=== PATIENT | male | born 1960 | race Caucasian/White ===

== ENCOUNTER → 2017-02-05 | Outpatient (CLI) | payer OTHER ==
[~2017-02-05] MED LIST: ALIG4CAP PO; COUM2.5T17 PO; EPI-PEN IM; FISH100049 PO; FLEXERIL PO; GABA300C2 PO; IBUP800T OR; MAGN250T9 PO; MIRA33504 PO; MULTIVIT PO; MULTTAB50 PO; PERC5TAB12 PO; PERCOCET PO; REST0.05 OU; TYLENOL #3 OR; VERA240T OR; VITA-112 PO; VITA100T5 OR; VITAMIN B COMPLE1 OR
[2017-02-05 12:37] LABS: MEAN CORPUSCULAR HEMOGLOBIN 29.6 pg (27.0-33.0); MEAN CORPUSCULAR HGB CONC 32.6 g/dl (32.0-36.5); MEAN CORPUSCULAR VOLUME 90.9 fl (80.0-96.0); RED CELL DISTRIBUTION WIDTH 13.8 % (11.5-14.5); WHITE BLOOD COUNT 13.9 10^3/uL (4.0-10.0)
[2017-02-05 12:45] LABS: INR 0.81
--- NOTE | 2017-02-05 12:47 | REP ---
PA and lateral chest: There are no comparisons. The lung butler are clear. The cardiac size is normal The [place], mediastinum, and bony thorax are unremarkable. The cervical spine stabilization plate is incidentally noted. Impression: Negative PA and lateral chest. Signed by Cory Nair MD 02/05/2017 12:39 P
[2017-02-05 12:55] LABS: ALBUMIN 3.9 GM/DL (3.2-5.2); ALBUMIN/GLOBULIN RATIO 1.03 (1.00-1.93); ALKALINE PHOSPHATASE 98 U/L (45-117); ALT/SGPT 35 U/L (12-78); ANION GAP 8 MEQ/L (8-16); AST/SGOT 20 U/L (15-37); BILIRUBIN,TOTAL 0.4 MG/DL (0.2-1.0); BLOOD UREA NITROGEN 17 MG/DL (7-18); CALCIUM LEVEL 9.8 MG/DL (8.5-10.1); CARBON DIOXIDE LEVEL 27 MEQ/L (21-32); CHLORIDE LEVEL 106 MEQ/L (98-107); CREATININE FOR GFR 0.69 MG/DL (0.70-1.30); GLOMERULAR FILTRATION RATE > 60.0 (>56); GLUCOSE, FASTING 90 MG/DL (70-105); SODIUM LEVEL 141 MEQ/L (136-145); TOTAL PROTEIN 7.7 GM/DL (6.4-8.2)
--- NOTE | 2017-02-05 17:41 | ECGEPIP ---
Stationary ECG Study [facility] Test Date: 2017-02-05 Pat Name: CHESTER GREEN Department: Room: - Gender: M Human Resources Benefits Administrator: ADONIS : 1960 Requested By: Richard Slaughter Order Number: [id number] Reading MD: Dulce Jordan Measurements Intervals [place] Rate: 57 P: 41 ND: 139 QRS: 15 QRSD: 117 T: 3 QT: 403 QTc: 393 Interpretive Statements SINUS BRADYCARDIA LEFT VENTRICULAR HYPERTROPHY AND ST-T ABNORMALITIES SIMILAR 08/09/13, LEFT VENTRICULAR HYPERTHROPHY IS NEW Electronically Signed On 02-05-2017 17:40:46 EDT by Dulce Jordan
== END ==
LOC: M ADMPAT 10:35
PROVIDERS: ATTEND Orthopaedic Surgery
DX: M17.11 Unilateral primary osteoarthritis, right knee (principal)

== ENCOUNTER 2018-05-30 07:02 | Day surgery (SDC) | payer OTHER ==
[~2018-05-30] VITALS: Ht 167.6 cm; Wt 84.8 kg
[~2018-05-30 07:02] MED LIST changes: +CELE1CAP4 PO; +LR 1,000 ML IV ONE; +TYLETAB14 PO; +VERA240C3 PO
[2018-05-30] MEDS ORDERED: dexameTHASONE 10 MG/1 ML VIAL PRES.FREE (J1100) ONE (07:03)
[2018-05-30] MEDS ORDERED: LIDOCAINE 1% MDV 20ML VIAL ONE (07:03)
[2018-05-30] MEDS ORDERED: ROPIvacaine 0.5% 30 ML INJECTION (J2795 PER 1MG) ONE (07:03)
[2018-05-30] MEDS ORDERED: ROCURONIUM BROMIDE 50 MG/5 ML VIAL As Ordered ONE (07:59)
[2018-05-30] MEDS ORDERED: LIDOCAINE 2% INJ 100 MG/5 ML SDV (FOR ANES.) As Ordered ONE (07:59)
[2018-05-30] MEDS ORDERED: PROPOFOL 200 MG/20 ML VIAL As Ordered ONE ×2 (07:59→09:37)
[2018-05-30] MEDS ORDERED: fentaNYL 250 MCG/5 ML INJECTION (J3010) As Ordered ONE (08:00)
[2018-05-30] MEDS ORDERED: fentaNYL 100 MCG/2 ML INJECTION (J3010) As Ordered ONE (08:00)
[2018-05-30] MEDS ORDERED: MIDAZOLAM INJ 2 MG/2 ML VIAL (J2250) As Ordered ONE (08:00)
[2018-05-30] MEDS ORDERED: fentaNYL 100 MCG/2 ML INJECTION (J3010) IV ONE (09:00)
[2018-05-30] MEDS ORDERED: MIDAZOLAM INJ 2 MG/2 ML VIAL (J2250) IV ONE (09:00)
[2018-05-30] MEDS ORDERED: LIDOCAINE 1% MDV 20ML VIAL As Ordered ONE (09:05)
[2018-05-30] MEDS ORDERED: EPINEPHrine 1MG/ML INJ 30ML MD-VIAL As Ordered ONE (09:05)
[2018-05-30] MEDS ORDERED: dexameTHASONE 4 MG/ML 1ML VIAL (J1100) As Ordered ONE (09:37)
[2018-05-30] MEDS ORDERED: METOCLOPRAMIDE INJ 10MG/2ML VIAL (J2765) As Ordered ONE (10:02)
[2018-05-30] MEDS ORDERED: GLYCOPYRROLATE INJ 0.2 MG/ML 2 ML VIAL As Ordered ONE (10:02)
[2018-05-30] MEDS ORDERED: NEOSTIGMINE 10 MG/10 ML VIAL (J2710) As Ordered ONE ×2 (10:02→10:03)
[2018-05-30] MEDS ORDERED: ONDANSETRON 4MG/2ML VIAL (J2405) As Ordered ONE (10:02)
[2018-05-30] MEDS ORDERED: ePHEDrine SULFATE 25 MG/5 ML(5MG/ML) SYRINGE As Ordered ONE (10:18)
[2018-05-30] MEDS ORDERED: PHENYLephrine HCL 500 MCG/5 ML (100MCG/ML) SYRINGE (J2370) As Ordered ONE (10:27)
[2018-05-30] MEDS ORDERED: LR 1,000 ML IV SCH ×2 (12:00)
[2018-05-30] MEDS ORDERED: HYDROMORPHONE HCL 0.5 MG/ 0.5 ML SYRINGE (J1170 PER 1) IV PRN (12:00)
[2018-05-30] MEDS ORDERED: ONDANSETRON 4MG/2ML VIAL (J2405) IV PRN (12:00)
[2018-05-30] MEDS ORDERED: fentaNYL 100 MCG/2 ML INJECTION (J3010) IV PRN (12:00)
[2018-05-30] MEDS ORDERED: PERCOCET 5MG/325MG TAB PO PRN (12:00)
[2018-05-30 12:30] VITALS: BP 142/78
--- NOTE | 2018-05-30 16:17 | RO ---
DATE OF PROCEDURE: 05/30/2018 PREOPERATIVE DIAGNOSES: 1. Left shoulder high-grade partial thickness rotator cuff tear. 2. Left shoulder long head biceps tendon rupture repair. 3. Left shoulder labral tear. 4. Left shoulder impingement. POSTOPERATIVE DIAGNOSIS: 1. Left shoulder high-grade partial thickness rotator cuff tear. 2. Left shoulder long head biceps tendon rupture repair. 3. Left shoulder labral tear. 4. Left shoulder impingement. PROCEDURES: 1. Left shoulder arthroscopic rotator cuff repair. 2. Left shoulder arthroscopic extensive debridement including labral debridement, chondroplasty and subacromial decompression. SURGEON: Dr. Clark Smith ORACLE ANALYST: OTILIA Sutton ANESTHESIA: General with preoperative nerve block. IV FLUIDS: Lactated Ringer's. ESTIMATED BLOOD LOSS: 5 mL IMPLANTS: Arthrex proximal biceps button times one and Arthrex 4.75 mm Peak SwiveLock anchor times four ([place]) closure nylon. PROCEDURE: Patient identified in preoperative holding area. The left shoulder marked by myself. The patient's Yosi deformity had gotten worse consistent with further retraction of the long head of biceps. The patient agreed that we would not do an exploration of the biceps or tenodesis. He had interscalene nerve block. Brought to the operating room, placed supine on a well-padded OR table with a beanbag. General anesthesia was induced. He received appropriate IV antibiotics within 1 hour of incision. Exam under anesthesia revealed 180 degrees of forward flexion 90 of external rotation with arm at his side. He grade 1 plus anterior load and shift grade 1 posterior. He is then placed in the right side down lateral decubitus position with an axillary roll. All bony prominences well padded. Bilateral Venodyne boots for DVT prophylaxis. Beanbag was deflated. He was secured to the OR table. The left arm was placed into the Arthrex star sleeve lateral decubitus traction device with 10 pounds of traction. The left shoulder was then prepped and draped in normal sterile fashion with Chloraprep. Time-out performed per hospital protocol. El Hartmann was present for the entire procedure and participated in all essential portions procedure. This included prepping and draping the position, holding the arthroscope, using the mallet and AWL and placing anchors, retrieving suture and wound closure. The left shoulder was insufflated 30 mL of lactated Ringer's. Standard posterior viewing portal made 11-blade and 30 degrees arthroscope introduced into the joint. Diagnostic arthroscopy carried out revealing a high-grade partial articular tear of the supraspinatus extending into the infraspinatus. The subscapularis appeared pristine. The long head of biceps tendon had torn off the superior labrum and fully withdrawn out of the joint. The scope was placed out the bicipital groove. No tendon was visible. There is extensive tearing of the anterior and superior labrum. There was minimal lift off of the subscap doing the posterior lever push maneuver. An anterior working portal was established in the rotator interval. Purple Arthrex cannula placed. Shaver was used to debride the anterior superior labrum. I also debrided the partial articular rotator cuff tear. Spinal needle was placed through the subacromial space through the tear into the joint to esvin the posterior aspect of the tear. Again probing the upper border of the subscap of the switching stick no tearing. No indication for repair. A chondroplasty of the humeral head adjacent to the rotator cuff tear of the shaver. Otherwise the glenoid and humeral head were in great condition. Arthroscope placed into the subacromial space where there was extensive bursitis and a lateral working portal was established. I then proceeded with a bursectomy using the shaver and cautery. The switching stick was used to palpate the supraspinatus and I was able to palpate that high-grade articular sided tear. Cautery was then used to turn this into full thickness tear releasing the remaining bursal fibers. The highest grade tearing was that the junction of the infra and supraspinatus and then further anteriorly the partial articular tear was only about 50%. I did place the scope intermittently into the joint and then back into the bursal surface to ensure I was not enlarging the anterior to superior aspect of the tear. Shaver was used to remove all soft tissue off the greater tuberosity to ensure bone the tendon healing. This was amendable to a double row repair. Punch was used to create a socket in the anterior aspect of the greater tuberosity just off the articular surface. The first SwiveLock anchor preloaded tape was placed with excellent fixation. Sutures were cut so I could pass the tape sutures individually. They are passed in a horizontal fashion from anterior to posterior. The second preloaded SwiveLock was placed further posterior in the greater tuberosity also just off the articular surface. The sutures also individually passed in a horizontal mattress fashion. Anterior sutures retrieved out the lateral portal loaded through 475 SwiveLock anchor, the smaller punch was used to ensure better fixation and then the anchor was docked, sutures tensioned anchor and anchor malleted and then inserted by hand with excellent fixation. This was repeated for the posterior tapes. Posterior lateral anchor also with excellent fixation. This created a nice box and X configuration. There are no dog ears. Shoulder was gently internally an externally rotated, gently abducted and adducted and there is no lift off. The shoulder was then irrigated and drained. Portals were closed with nylon suture. Bulky sterile dressing applied. He was then placed into the ARC2 sling. He was extubated, transferred to PACU in stable condition.
== END 2018-05-30 13:16 | disposition home or self-care (01) ==
LOC: M SDC 07:02
PROVIDERS: ATTEND Orthopaedic Surgery
DX: M75.112 Incomplete rotator cuff tear or rupture of left shoulder, not specified as traumatic (principal); S43.112A Subluxation of left acromioclavicular joint, initial encounter; S43.492A Other sprain of left shoulder joint, initial encounter; M75.42 Impingement syndrome of left shoulder; I10 Essential (primary) hypertension; R94.31 Abnormal electrocardiogram [ECG] [EKG]; K57.30 Diverticulosis of large intestine without perforation or abscess without bleeding; M54.2 Cervicalgia; M12.9 Arthropathy, unspecified; E78.00 Pure hypercholesterolemia, unspecified; N40.1 Benign prostatic hyperplasia with lower urinary tract symptoms; G43.909 Migraine, unspecified, not intractable, without status migrainosus; F41.9 Anxiety disorder, unspecified; R06.83 Snoring; L98.9 Disorder of the skin and subcutaneous tissue, unspecified; T88.59XD Other complications of anesthesia, subsequent encounter; Z91.030 Bee allergy status; Z79.899 Other long term (current) drug therapy; Z72.0 Tobacco use; Z98.1 Arthrodesis status; X58.XXXA Exposure to other specified factors, initial encounter; Y93.89 Activity, other specified; Y92.89 Other specified places as the place of occurrence of the external cause; Y99.8 Other external cause status
CPT/HCPCS: 29826; 29827; 64415; C1713; J0690; J1100; J2250; J2370; J2405; J2710; J2765; J2795; J3010

== ENCOUNTER → 2018-11-23 | Outpatient (CLI) | payer OTHER ==
[~2018-11-23] MED LIST changes: -LR 1,000 ML IV ONE
--- NOTE | 2018-11-24 03:45 | REP ---
Clinical: MRI clearance. Technique: AP and lateral views of the skull. Findings: Evidence for prior anterior cervical fixation and metallic dental amalgam. No further metallic foreign body material is appreciated. Calvarium appears intact. Impression: No significant metallic foreign body. As above. Electronically Signed by Marco Alberts MD 11/24/2018 03:37 A
== END ==
LOC: M RAD 09:58
PROVIDERS: ATTEND Orthopaedic Surgery
DX: M47.22 Other spondylosis with radiculopathy, cervical region (principal)

== ENCOUNTER → 2018-11-25 | Outpatient (CLI) | payer OTHER ==
--- NOTE | 2018-11-25 15:07 | REP ---
MRI LEFT SCAPULA WITHOUT CONTRAST: Multiple sequences obtained in the axial, coronal, and sagittal planes without the use of intravenous contrast. Patient could not tolerate further imaging with contrast due to pain. Reportedly, there is a palpable abnormality in the region of the left scapula, and the area is marked on the skin. No definite underlying cystic or solid mass is seen. There is no abnormal signal in the soft tissues. No edema or fluid collection is seen. The visualized osseous structures demonstrate normal marrow signal. IMPRESSION: Grossly negative MRI left posterior chest wall and scapula. No gross mass, edema, or fluid collection. Since the clinical abnormality is palpable and there is a question of a soft tissue mass, I would recommend the patient return when he is able for postcontrast imaging of the area. Electronically Signed by Cory Guan MD 11/29/2018 05:35 P
--- NOTE | 2018-11-25 16:03 | REPVR ---
EXAM: MR Cervical Spine Without Contrast EXAM DATE/TIME: 11/25/2018 1:48 PM CLINICAL HISTORY: 58 years old, male; Neck pain and radicular pain (radiculopathy); Cervicothoracic region. TECHNIQUE: Imaging protocol: Multiplanar magnetic resonance images of the cervical spine without contrast. COMPARISON: CR Spine, Cervical 08/29/2013 8:54 AM FINDINGS: Vertebrae: The patient has had prior anterior cervical fusion from C4-7. Surgical hardware causes moderate magnetic susceptibility artifact which limits evaluation of the surrounding anatomy. Spinal cord: Normal signal. No cord compression. There is a moderate disc bulge with a small superimposed central disc herniation. There is effacement of the ventral subarachnoid space and indentation of the ventral cervical cord. There is mild/moderate bilateral neuroforaminal narrowing. Soft tissues: Unremarkable. IMPRESSION: 1. The patient has had prior anterior cervical fusion from C4-7. Surgical hardware causes moderate magnetic susceptibility artifact which limits evaluation of the surrounding anatomy. Please correlate with surgical history. 2. Disc bulging with small central disc herniation at C3/4. Please see details above. Electronically signed by: Nick Porter On 11/25/2018 16:02:50 PM
== END ==
LOC: M PLARAD 09:51
PROVIDERS: ATTEND Orthopaedic Surgery Sports Medicine
DX: M50.322 Other cervical disc degeneration at C5-C6 level (principal); M50.323 Other cervical disc degeneration at C6-C7 level; Z98.1 Arthrodesis status

== ENCOUNTER → 2019-11-06 | Outpatient (CLI) | payer BC ==
[~2019-11-06] MED LIST changes: +CANABIS PO; +MULTCAP PO; +PROHANCE 279.3MG/ML 15ML VIAL As Ordered ONE; +TIZA4TAB4 PO; +VITAD1000T PO
--- NOTE | 2019-11-07 10:24 | REP ---
MRI CERVICAL SPINE: INDICATION: Radiculopathy. TECHNIQUE: Multiplanar short and long TR sequences of the cervical spine were performed including IV gadolinium imaging. COMPARISON: 11/25/2018 FINDINGS: The patient is status post C4-C7 ACDF. The adjacent anatomy is suboptimally evaluated secondary to susceptibility artifact associated with the hardware. No areas of worrisome marrow signal are present. No areas of pathologic gadolinium enhancement are detected. There is no evidence of abnormal cord signal. C2-C3: There is no focal disc herniation or significant spinal canal/neural foraminal narrowing. C3-C4: There is a tiny posterior central/right paracentral disc protrusion and right greater than left facet arthropathy. There is mild flattening of the ventral cord. There is moderate to severe right greater than left neural foraminal narrowing. C4-C5, C5-C6 and C6-C7: Postoperative sequelae are present without significant spinal canal or neural foraminal narrowing. C7-T1: There is no focal disc herniation or significant spinal canal/neural foraminal narrowing. IMPRESSION: Degenerative and postoperative sequelae of the cervical spine as described without significant spinal canal narrowing/cord compression. No abnormal cord signal. Unreviewed
== END ==
LOC: M RAD 14:47
PROVIDERS: ATTEND Physician Assistant
DX: M47.22 Other spondylosis with radiculopathy, cervical region (principal); M50.21 Other cervical disc displacement, high cervical region
CPT/HCPCS: 72156; A9576

== ENCOUNTER → 2019-11-12 | Outpatient (CLI) | payer BC ==
[~2019-11-12] MED LIST changes: +D31000TA2 PO; -PROHANCE 279.3MG/ML 15ML VIAL As Ordered ONE; -VITAD1000T PO
== END ==
LOC: M LABSMTC 09:38
PROVIDERS: ATTEND Anesthesiology
DX: Z01.818 Encounter for other preprocedural examination (principal); Z20.828 Contact with and (suspected) exposure to other viral communicable diseases; Z11.59 Encounter for screening for other viral diseases
CPT/HCPCS: C9803; U0003

== ENCOUNTER 2019-11-17 13:04 | Day surgery (SDC) | payer BC ==
[~2019-11-17] VITALS: Ht 167.6 cm; Wt 76.2 kg
[~2019-11-17 13:04] MED LIST changes: +NS 1,000 ML IV ONE
--- NOTE | 2019-11-17 14:15 | ROOR ---
Patient Name: Vineet Cuevas Procedure Date: 11/17/2019 1:47 PM Date of : 1960 Age: 59 Room: [facility] Gender: Male Note Status: Finalized Procedure: Colonoscopy Indications: Abnormal CT of the GI tract, Follow-up of diverticulitis Providers: Salvador CABRERA MD Referring MD: Mariana Nick DO Requesting Provider: Medicines: Monitored Anesthesia Care Complications: No immediate complications. Procedure: Pre-Anesthesia Assessment: - The heart rate, respiratory rate, oxygen saturations, blood pressure, adequacy of pulmonary ventilation, and response to care were monitored throughout the procedure. The Colonoscope was introduced through the anus and advanced to the terminal ileum, with identification of the appendiceal orifice and IC valve. The colonoscopy was performed without difficulty. The patient tolerated the procedure well. The quality of the bowel preparation was good. Findings: Hemorrhoids were found on perianal exam. A diminutive polyp was found in the sigmoid colon. The polyp was sessile. The polyp was removed with a cold snare. Resection and retrieval were complete. Multiple small-mouthed diverticula were found in the sigmoid colon. There was evidence of diverticular spasm. Internal hemorrhoids were found during retroflexion. The hemorrhoids were medium-sized. The exam was otherwise without abnormality on direct and retroflexion views. Impression: - Hemorrhoids found on perianal exam. - Moderate internal hemorrhoids. - One diminutive polyp in the sigmoid colon, removed with a cold snare. Resected and retrieved. - Moderate diverticulosis in the sigmoid colon. There was evidence of diverticular spasm. - The colon examination was otherwise normal on direct and retroflexion views. Recommendation: - Telephone endoscopist for pathology results in 2 weeks. - If the pathology report reveals adenomatous tissue, then repeat the colonoscopy for surveillance in 5 years. - Await pathology results. Salvador Cabrera MD Salvador CABRERA MD 11/17/2019 2:15:03 PM Electronically signed by Salvador CABRERA MD Number of Addenda: 0 Note Initiated On: 11/17/2019 1:47 PM Estimated Blood Loss: Estimated blood loss: none.
[2019-11-17] MEDS ORDERED: propofoL 200 MG/20 ML VIAL As Ordered ONE (14:24)
[2019-11-17] MEDS ORDERED: LIDOCAINE 2% 100MG/5ML SDV (FOR ANES.) As Ordered ONE (14:24)
[2019-11-17 14:43] VITALS: BP 160/74
== END 2019-11-17 14:46 | disposition home or self-care (01) ==
LOC: M OPP 13:04
PROVIDERS: ATTEND Internal Medicine Gastroenterology
DX: K57.32 Diverticulitis of large intestine without perforation or abscess without bleeding (principal); K57.30 Diverticulosis of large intestine without perforation or abscess without bleeding; K64.8 Other hemorrhoids; F17.210 Nicotine dependence, cigarettes, uncomplicated; D12.5 Benign neoplasm of sigmoid colon; Z79.899 Other long term (current) drug therapy; Z91.030 Bee allergy status

== ENCOUNTER → 2020-10-10 | Outpatient (CLI) | payer BC ==
[~2020-10-10] MED LIST changes: -NS 1,000 ML IV ONE
--- NOTE | 2020-10-11 05:15 | REP ---
INDICATION: LLQ PAIN COMPARISON: None. TECHNIQUE: Grayscale and color B-mode ultrasound examination using linear high-frequency transducer. FINDINGS: Directed ultrasound examination of the left groin demonstrates small fat containing reducible inguinal hernia with slight enlargement on Valsalva and associated peritoneal defect of 27 mm. IMPRESSION: Small reducible fat containing inguinal hernia. <Electronically signed by Marco Alberts > 10/11/20 0511
== END ==
LOC: M RAD 12:06
PROVIDERS: ATTEND Surgery
DX: R10.32 Left lower quadrant pain (principal); K40.90 Unilateral inguinal hernia, without obstruction or gangrene, not specified as recurrent

== ENCOUNTER → 2020-12-02 | Outpatient (CLI) | payer BC ==
[~2020-12-02] MED LIST changes: +ACET1TAB16 PO; +DOCU100T8 PO; +MIRA3350 PO; +NO ITAB PO; +OMEG10002 PO; +PROB250C PO; +VITA100091 PO
== END ==
LOC: M LABSMTC 09:58
PROVIDERS: ATTEND Anesthesiology
DX: Z01.812 Encounter for preprocedural laboratory examination (principal); Z20.822 Contact with and (suspected) exposure to COVID-19

== ENCOUNTER 2020-12-06 09:10 | Day surgery (SDC) | payer BC ==
[~2020-12-06] VITALS: Ht 167.6 cm; Wt 78.9 kg
[~2020-12-06 09:10] MED LIST changes: +LR 1,000 ML IV ONE; +TIZA10TA PO; -TIZA4TAB4 PO; +ceFAZolin SOD 2 GM in IV 1 EA IV ONE
[2020-12-06] MEDS ORDERED: LIDOCAINE 2% 100MG/5ML SDV (FOR ANES.) ONE (09:58)
[2020-12-06] MEDS ORDERED: propofoL 200 MG/20 ML VIAL ONE (09:58)
[2020-12-06] MEDS ORDERED: fentaNYL 100 MCG/2 ML INJECTION ONE ×2 (09:58→11:27)
[2020-12-06] MEDS ORDERED: dexameTHASONE 4 MG/ML 1ML VIAL (J1100 PER 1MG) ONE (09:58)
[2020-12-06] MEDS ORDERED: MIDAZOLAM INJ 2MG/2ML VIAL (J2250 PER 1MG) ONE (09:58)
[2020-12-06] MEDS ORDERED: ROCURONIUM BROMIDE 50 MG/5 ML VIAL ONE ×2 (09:58→11:47)
[2020-12-06] MEDS ORDERED: ONDANSETRON 4MG/2ML VIAL ONE (09:58)
[2020-12-06] MEDS ORDERED: ceFAZolin 2 GM/D5W 50 ML IV BAG (J0690 PER 500MG) ONE (11:15)
[2020-12-06] MEDS ORDERED: ACETAMINOPHEN 1000MG 100ML IV BTL (OFIRMEV) (J0131 PER 10MG) ONE (11:20)
[2020-12-06] MEDS ORDERED: SUGAMMADEX SODIUM 500 MG/5 ML VIAL (BRIDION) ONE (11:32)
[2020-12-06] MEDS ORDERED: KETOROLAC 60MG 2ML VIAL ONE (11:32)
[2020-12-06] MEDS ORDERED: BUPIVACAINE/EPIN 0.25% 30 ML VIAL As Ordered ONE (11:38)
[2020-12-06] MEDS ORDERED: ceFAZolin 2 GM/D5W 50 ML IV BAG (J0690 PER 500MG) As Ordered ONE (11:38)
[2020-12-06] MEDS ORDERED: GLYCOPYRROLATE INJ 0.2 MG/ML 2 ML VIAL ONE (11:44)
[2020-12-06] MEDS ORDERED: fentaNYL 100 MCG/2 ML INJECTION IV PRN (12:50)
[2020-12-06] MEDS ORDERED: NORCO, ANEXSIA 5/325MG TABLET (HYDROcodone/ACETAMINOPHEN) PO PRN (12:50)
[2020-12-06] MEDS ORDERED: LR 1,000 ML IV SCH (12:50)
[2020-12-06] MEDS ORDERED: oxyCODONE 5MG TAB PO PRN (12:50)
[2020-12-06] MEDS ORDERED: ONDANSETRON 4MG/2ML VIAL IV PRN (12:50)
[2020-12-06 13:40] VITALS: BP 122/64
== END 2020-12-06 13:50 | disposition home or self-care (01) ==
LOC: M SDC 09:10
PROVIDERS: ATTEND Surgery
DX: K40.90 Unilateral inguinal hernia, without obstruction or gangrene, not specified as recurrent (principal); I10 Essential (primary) hypertension; K57.90 Diverticulosis of intestine, part unspecified, without perforation or abscess without bleeding; K76.9 Liver disease, unspecified; Z79.899 Other long term (current) drug therapy; F41.9 Anxiety disorder, unspecified; G43.909 Migraine, unspecified, not intractable, without status migrainosus; F12.10 Cannabis abuse, uncomplicated; F17.218 Nicotine dependence, cigarettes, with other nicotine-induced disorders; Z91.030 Bee allergy status
CPT/HCPCS: 49650; 88304; C1781; J0131; J0690; J1100; J1885; J2250; J2405; J3010; S2900

== ENCOUNTER → 2021-04-15 | Outpatient (CLI) | payer BC ==
[~2021-04-15] MED LIST changes: -LR 1,000 ML IV ONE; -ceFAZolin SOD 2 GM in IV 1 EA IV ONE
== END ==
LOC: M PLAIMG 08:52
PROVIDERS: ATTEND Orthopaedic Surgery
DX: M50.11 Cervical disc disorder with radiculopathy, high cervical region (principal); M50.121 Cervical disc disorder at C4-C5 level with radiculopathy; M50.123 Cervical disc disorder at C6-C7 level with radiculopathy; M48.02 Spinal stenosis, cervical region

== ENCOUNTER → 2021-10-16 | Outpatient (CLI) | payer BC ==
[~2021-10-16] MED LIST changes: -ACET1TAB16 PO; +ACET300T48 PO; -D31000TA2 PO; +VITA100093 PO
== END ==
LOC: M LABSMTC 11:30
PROVIDERS: ATTEND Anesthesiology
DX: Z01.812 Encounter for preprocedural laboratory examination (principal); Z20.822 Contact with and (suspected) exposure to COVID-19

== ENCOUNTER 2021-10-21 08:46 | Day surgery (SDC) | payer BC ==
[~2021-10-21] VITALS: Ht 167.6 cm; Wt 84.3 kg
[~2021-10-21 08:46] MED LIST changes: +LIDOCAINE 2% 100MG/5ML SDV (FOR ANES.) As Ordered ONE; +NS 1,000 ML IV ONE; +propofoL 200 MG/20 ML VIAL As Ordered ONE
[2021-10-21 10:20] VITALS: BP 159/79
== END 2021-10-21 10:34 | disposition home or self-care (01) ==
LOC: M OPP 08:46
PROVIDERS: ATTEND Internal Medicine Gastroenterology
DX: K63.5 Polyp of colon (principal); K57.30 Diverticulosis of large intestine without perforation or abscess without bleeding; K57.32 Diverticulitis of large intestine without perforation or abscess without bleeding; K64.8 Other hemorrhoids; R93.3 Abnormal findings on diagnostic imaging of other parts of digestive tract; Z79.891 Long term (current) use of opiate analgesic; Z79.899 Other long term (current) drug therapy; Z91.030 Bee allergy status

== ENCOUNTER → 2022-06-07 | Outpatient (CLI) | payer BC ==
[~2022-06-07] MED LIST changes: +CENT1TAB2 PO; +EQL400CA9 PO; -LIDOCAINE 2% 100MG/5ML SDV (FOR ANES.) As Ordered ONE; -NS 1,000 ML IV ONE; -propofoL 200 MG/20 ML VIAL As Ordered ONE
== END ==
LOC: M LABSMTC 10:22
PROVIDERS: ATTEND Anesthesiology
DX: Z01.812 Encounter for preprocedural laboratory examination (principal); Z11.52 Encounter for screening for COVID-19

== ENCOUNTER 2022-06-11 06:02 | Inpatient (IN) | payer BC ==
[~2022-06-11] VITALS: Ht 167.6 cm; Wt 83.6 kg
[2022-06-11] MEDS ORDERED: LR 1,000 ML IV SCH ×2 (06:30→11:45)
[2022-06-11] MEDS ORDERED: LIDOCAINE 2% 100MG/5ML SDV (FOR ANES.) As Ordered ONE (07:14)
[2022-06-11] MEDS ORDERED: MIDAZOLAM INJ 2MG/2ML VIAL As Ordered ONE (07:14)
[2022-06-11] MEDS ORDERED: fentaNYL 100 MCG/2 ML INJECTION As Ordered ONE (07:14)
[2022-06-11] MEDS ORDERED: ROCURONIUM BROMIDE 50MG/5ML VIAL As Ordered ONE ×3 (07:14→09:41)
[2022-06-11] MEDS ORDERED: propofoL 200 MG/20 ML VIAL As Ordered ONE (07:14)
[2022-06-11] MEDS ORDERED: ONDANSETRON 4MG 2ML VIAL As Ordered ONE (07:14)
[2022-06-11] MEDS ORDERED: BUPIVACAINE/EPIN 0.25% 30ML VIAL As Ordered ONE (07:16)
[2022-06-11] MEDS ORDERED: cefoTEtan DISODIUM 2 GM in D5W MINI-BAG PLUS 50 ML IV ONE (07:20)
[2022-06-11] MEDS ORDERED: ACETAMINOPHEN 1000MG 100ML IV BAG As Ordered ONE (07:24)
[2022-06-11] MEDS ORDERED: LACRILUBE (AKWA TEARS) OPHTH OINT 3.5GM As Ordered ONE (07:25)
[2022-06-11] MEDS ORDERED: HYDROmorphone HCL 2MG/ML 1ML VIAL As Ordered ONE (08:05)
[2022-06-11] MEDS ORDERED: SUGAMMADEX SODIUM 500 MG/5 ML VIAL (BRIDION) As Ordered ONE (08:41)
[2022-06-11] MEDS ORDERED: KETOROLAC 60MG 2ML VIAL As Ordered ONE (08:41)
[2022-06-11] MEDS ORDERED: GLYCOPYRROLATE INJ 0.2 MG/ML 2 ML VIAL As Ordered ONE (09:10)
[2022-06-11] MEDS ORDERED: ONDANSETRON 4MG 2ML VIAL IV PRN ×2 (11:45→12:10)
[2022-06-11] MEDS ORDERED: NORCO, ANEXSIA 5/325MG TABLET (HYDROcodone/ACETAMINOPHEN) PO PRN ×2 (12:10)
[2022-06-11] MEDS ORDERED: MORPHINE 2 MG/ML 1ML VIAL IV PRN (12:10)
[2022-06-11] MEDS: oxyCODONE 5MG TAB PO PRN ×2 (12:12→13:10)
[2022-06-11] MEDS: fentaNYL 100 MCG/2 ML INJECTION IV PRN ×4 (12:13→12:32)
[2022-06-11 13:30] VITALS: BP 119/63
[2022-06-11] MEDS: NS 1,000 ML IV SCH ×2 (13:45→21:32)
[2022-06-11 14:00] VITALS: BP 119/72
[2022-06-11] MEDS ORDERED: PROBCAP14 PO (14:12)
[2022-06-11] MEDS ORDERED: HOME MED LIST COMPLETE! XX SCH (14:15)
[2022-06-11 15:00] VITALS: BP 119/76
[2022-06-11] MEDS: PIPERACILLIN/TAZOBACTAM SOD 3.375 GM in D5W MINI-BAG PLUS 50 ML IV SCH ×2 (15:23→21:32)
[2022-06-11 17:00] VITALS: BP 145/84
[2022-06-11 18:00] VITALS: BP 141/81
[2022-06-11] MEDS: ACETAMINOPHEN TAB 650MG DOSE (2X325MG) PO PRN (21:33)
[2022-06-11] MEDS: SENOKOT S TAB PO SCH (21:33)
[2022-06-11 22:00] VITALS: BP 147/83
[2022-06-12] MEDS ORDERED: UNRESOLVED CLARIFICATION ENTRY XX SCH (00:01)
[2022-06-12 02:00] VITALS: BP 110/62
[2022-06-12] MEDS: ACETAMINOPHEN TAB 650MG DOSE (2X325MG) PO PRN ×3 (03:34→18:45)
[2022-06-12] MEDS: PIPERACILLIN/TAZOBACTAM SOD 3.375 GM in D5W MINI-BAG PLUS 50 ML IV SCH ×4 (03:34→20:12)
[2022-06-12] MEDS: NS 1,000 ML IV SCH ×3 (04:46→20:12)
[2022-06-12] MEDS: KETOROLAC 30 MG/ML 1ML VIAL IV PRN ×3 (05:47→20:12)
[2022-06-12 06:00] VITALS: BP 142/81
[2022-06-12 06:02] LABS: HEMATOCRIT 39.4 % (42.0-52.0); HEMOGLOBIN 12.9 g/dl (13.5-17.5); MEAN CORPUSCULAR HEMOGLOBIN 29.8 pg (27.0-33.0); MEAN CORPUSCULAR HGB CONC 32.7 g/dl (32.0-36.5); PLATELET COUNT, AUTOMATED 303 10^3/uL (150-450); RED BLOOD COUNT 4.33 10^6/uL (4.30-6.10); WHITE BLOOD COUNT 17.6 10^3/uL (4.0-10.0)
[2022-06-12 06:34] LABS: ALBUMIN 3.1 G/DL (3.2-5.2); ALKALINE PHOSPHATASE 86 U/L (46-116); ALT/SGPT 22 U/L (7.0-40); AST/SGOT 21 U/L (<34); BILIRUBIN,TOTAL 1.1 MG/DL (0.3-1.2); BLOOD UREA NITROGEN 16 MG/DL (9-23); CALCIUM LEVEL 8.8 MG/DL (8.3-10.6); CARBON DIOXIDE LEVEL 25 MMOL/L (20-31); CHLORIDE LEVEL 104 MMOL/L (98-107); CREATININE FOR GFR 0.96 MG/DL (0.70-1.30); GLOMERULAR FILTRATION RATE > 60.0 (>49); GLUCOSE, FASTING 119 MG/DL (74-106); POTASSIUM SERUM 4.3 MMOL/L (3.5-5.1); SODIUM LEVEL 137 MMOL/L (136-145); TOTAL PROTEIN 6.1 G/DL (5.7-8.2)
[2022-06-12 07:00] VITALS: BP 142/78
[2022-06-12] MEDS: PANTOPRAZOLE 40MG TAB (PROTONIX) PO SCH (08:43)
[2022-06-12] MEDS: SENOKOT S TAB PO SCH ×2 (08:44→20:12)
[2022-06-12] MEDS: ENOXAPARIN 40MG/0.4ML SYRINGE (J1650 PER 10MG) SC SCH (09:00)
[2022-06-12 11:00] VITALS: BP 160/102
[2022-06-12 14:00] VITALS: BP 150/86
[2022-06-12] MEDS: VERAPAMIL 120MG SR TAB PO SCH (15:01)
[2022-06-12 22:00] VITALS: BP 148/85
[2022-06-13] MEDS: PIPERACILLIN/TAZOBACTAM SOD 3.375 GM in D5W MINI-BAG PLUS 50 ML IV SCH ×4 (03:49→20:40)
[2022-06-13] MEDS: NS 1,000 ML IV SCH ×3 (03:49→23:16)
[2022-06-13] MEDS: KETOROLAC 30 MG/ML 1ML VIAL IV PRN (05:57)
[2022-06-13] MEDS: VERAPAMIL 120MG SR TAB PO SCH ×2 (05:58→17:24)
[2022-06-13 06:00] VITALS: BP 136/79
[2022-06-13 07:09] LABS: HEMATOCRIT 27.3 % (42.0-52.0); MEAN CORPUSCULAR HEMOGLOBIN 30.6 pg (27.0-33.0); MEAN CORPUSCULAR HGB CONC 32.6 g/dl (32.0-36.5); MEAN CORPUSCULAR VOLUME 93.8 fl (80.0-96.0); PLATELET COUNT, AUTOMATED 269 10^3/uL (150-450); RED BLOOD COUNT 2.91 10^6/uL (4.30-6.10); WHITE BLOOD COUNT 13.1 10^3/uL (4.0-10.0)
[2022-06-13 07:12] LABS: HEMOGLOBIN 8.9 g/dl (13.5-17.5)
[2022-06-13 08:13] LABS: ALBUMIN 2.7 G/DL (3.2-5.2); ALKALINE PHOSPHATASE 60 U/L (46-116); ALT/SGPT 18 U/L (7.0-40); AST/SGOT 10 U/L (<34); BILIRUBIN,TOTAL 1.1 MG/DL (0.3-1.2); BLOOD UREA NITROGEN 14 MG/DL (9-23); CALCIUM LEVEL 8.4 MG/DL (8.3-10.6); CARBON DIOXIDE LEVEL 26 MMOL/L (20-31); CHLORIDE LEVEL 114 MMOL/L (98-107); CREATININE FOR GFR 0.97 MG/DL (0.70-1.30); GLOMERULAR FILTRATION RATE > 60.0 (>49); GLUCOSE, FASTING 98 MG/DL (74-106); POTASSIUM SERUM 5.1 MMOL/L (3.5-5.1); SODIUM LEVEL 143 MMOL/L (136-145); TOTAL PROTEIN 5.1 G/DL (5.7-8.2)
[2022-06-13] MEDS: SENOKOT S TAB PO SCH ×2 (08:47→20:39)
[2022-06-13] MEDS: PANTOPRAZOLE 40MG TAB (PROTONIX) PO SCH (08:47)
[2022-06-13] MEDS: ENOXAPARIN 40MG/0.4ML SYRINGE (J1650 PER 10MG) SC SCH (09:00)
[2022-06-13] MEDS: ACETAMINOPHEN TAB 650MG DOSE (2X325MG) PO PRN (11:55)
[2022-06-13 12:32] LABS: HEMATOCRIT 23.4 % (42.0-52.0); HEMOGLOBIN 7.5 g/dl (13.5-17.5)
[2022-06-13] MEDS: PERCOCET 5MG/325MG TAB PO PRN ×2 (14:10→20:40)
[2022-06-13 15:18] VITALS: BP 138/68
[2022-06-13 17:52] LABS: HEMATOCRIT 21.1 % (42.0-52.0)
[2022-06-13 21:29] VITALS: BP 128/75
[2022-06-14] VITALS (12 sets, daily range): BP systolic 116–155; BP diastolic 60–90
[2022-06-14] MEDS: PIPERACILLIN/TAZOBACTAM SOD 3.375 GM in D5W MINI-BAG PLUS 50 ML IV SCH ×4 (02:15→19:57)
[2022-06-14] MEDS: PERCOCET 5MG/325MG TAB PO PRN ×5 (03:21→21:09)
[2022-06-14] MEDS: VERAPAMIL 120MG SR TAB PO SCH ×2 (05:24→16:48)
[2022-06-14 06:46] LABS: BASO # 0.1 10^3/uL (0.0-0.2); BASO % 0.6 % (0.0-1.0); EOS # 0.2 10^3/uL (0.0-0.5); LYMPH # 3.8 10^3/uL (1.5-5.0); LYMPH % 32.2 % (24.0-44.0); MEAN CORPUSCULAR HEMOGLOBIN 30.1 pg (27.0-33.0); MEAN CORPUSCULAR HGB CONC 32.4 g/dl (32.0-36.5); MEAN CORPUSCULAR VOLUME 93.2 fl (80.0-96.0); MONO # 1.1 10^3/uL (0.0-0.8); MONO % 9.2 % (2.0-8.0); NEUTROPHILS # 6.5 10^3/uL (1.5-8.5); NEUTROPHILS % 55.4 % (36.0-66.0); PLATELET COUNT, AUTOMATED 258 10^3/uL (150-450); RED BLOOD COUNT 2.19 10^6/uL (4.30-6.10); WHITE BLOOD COUNT 11.8 10^3/uL (4.0-10.0)
[2022-06-14 06:50] LABS: HEMATOCRIT 20.4 % (42.0-52.0); HEMOGLOBIN 6.6 g/dl (13.5-17.5)
[2022-06-14 07:20] LABS: ALBUMIN 2.6 G/DL (3.2-5.2); ALKALINE PHOSPHATASE 53 U/L (46-116); ALT/SGPT 15 U/L (7.0-40); AST/SGOT 20 U/L (<34); BILIRUBIN,TOTAL 0.8 MG/DL (0.3-1.2); BLOOD UREA NITROGEN 9 MG/DL (9-23); CARBON DIOXIDE LEVEL 25 MMOL/L (20-31); CHLORIDE LEVEL 108 MMOL/L (98-107); GLOMERULAR FILTRATION RATE > 60.0 (>49); GLUCOSE, FASTING 98 MG/DL (74-106); SODIUM LEVEL 140 MMOL/L (136-145); TOTAL PROTEIN 5.1 G/DL (5.7-8.2)
[2022-06-14] MEDS: PANTOPRAZOLE 40MG TAB (PROTONIX) PO SCH (07:43)
[2022-06-14] MEDS: SENOKOT S TAB PO SCH ×2 (07:44→19:57)
[2022-06-14] MEDS: NS 1,000 ML IV SCH (16:00)
[2022-06-15] MEDS: NS 1,000 ML IV SCH (03:12)
[2022-06-15] MEDS: PIPERACILLIN/TAZOBACTAM SOD 3.375 GM in D5W MINI-BAG PLUS 50 ML IV SCH ×4 (03:13→19:57)
[2022-06-15] MEDS: VERAPAMIL 120MG SR TAB PO SCH ×2 (04:57→17:59)
[2022-06-15] MEDS: ACETAMINOPHEN TAB 650MG DOSE (2X325MG) PO PRN (05:36)
[2022-06-15 06:00] VITALS: BP 139/83
[2022-06-15 06:10] LABS: HEMATOCRIT 27.2 % (42.0-52.0); MEAN CORPUSCULAR HEMOGLOBIN 30.9 pg (27.0-33.0); MEAN CORPUSCULAR HGB CONC 34.6 g/dl (32.0-36.5); MEAN CORPUSCULAR VOLUME 89.5 fl (80.0-96.0); PLATELET COUNT, AUTOMATED 284 10^3/uL (150-450); RED BLOOD COUNT 3.04 10^6/uL (4.30-6.10); WHITE BLOOD COUNT 10.7 10^3/uL (4.0-10.0)
[2022-06-15 06:15] LABS: HEMOGLOBIN 9.4 g/dl (13.5-17.5)
[2022-06-15 06:41] LABS: ALBUMIN 2.8 G/DL (3.2-5.2); ALKALINE PHOSPHATASE 56 U/L (46-116); ALT/SGPT 16 U/L (7.0-40); AST/SGOT 14 U/L (<34); BLOOD UREA NITROGEN 8 MG/DL (9-23); CARBON DIOXIDE LEVEL 26 MMOL/L (20-31); CHLORIDE LEVEL 109 MMOL/L (98-107); CREATININE FOR GFR 0.86 MG/DL (0.70-1.30); GLOMERULAR FILTRATION RATE > 60.0 (>49); GLUCOSE, FASTING 90 MG/DL (74-106); POTASSIUM SERUM 3.8 MMOL/L (3.5-5.1); SODIUM LEVEL 140 MMOL/L (136-145); TOTAL PROTEIN 5.4 G/DL (5.7-8.2)
[2022-06-15] MEDS: SENOKOT S TAB PO SCH ×2 (08:46→19:57)
[2022-06-15] MEDS: PANTOPRAZOLE 40MG TAB (PROTONIX) PO SCH (08:46)
[2022-06-15] MEDS: PERCOCET 5MG/325MG TAB PO PRN ×3 (08:46→19:57)
[2022-06-15 14:00] VITALS: BP 152/72
[2022-06-15 21:51] VITALS: BP 138/63
[2022-06-16] MEDS: ACETAMINOPHEN TAB 650MG DOSE (2X325MG) PO PRN (02:33)
[2022-06-16] MEDS: PIPERACILLIN/TAZOBACTAM SOD 3.375 GM in D5W MINI-BAG PLUS 50 ML IV SCH ×2 (02:34→09:01)
[2022-06-16 05:48] VITALS: BP 136/68
[2022-06-16 06:03] VITALS: BP 153/94
[2022-06-16] MEDS: VERAPAMIL 120MG SR TAB PO SCH (06:03)
[2022-06-16 06:06] LABS: HEMATOCRIT 26.2 % (42.0-52.0); HEMOGLOBIN 8.6 g/dl (13.5-17.5); MEAN CORPUSCULAR HEMOGLOBIN 29.8 pg (27.0-33.0); MEAN CORPUSCULAR HGB CONC 32.8 g/dl (32.0-36.5); MEAN CORPUSCULAR VOLUME 90.7 fl (80.0-96.0); PLATELET COUNT, AUTOMATED 312 10^3/uL (150-450); RED BLOOD COUNT 2.89 10^6/uL (4.30-6.10); WHITE BLOOD COUNT 9.7 10^3/uL (4.0-10.0)
[2022-06-16 07:10] LABS: ALBUMIN 2.7 G/DL (3.2-5.2); ALKALINE PHOSPHATASE 51 U/L (46-116); ALT/SGPT 16 U/L (7.0-40); AST/SGOT 11 U/L (<34); BILIRUBIN,TOTAL 0.5 MG/DL (0.3-1.2); BLOOD UREA NITROGEN 14 MG/DL (9-23); CARBON DIOXIDE LEVEL 30 MMOL/L (20-31); CHLORIDE LEVEL 110 MMOL/L (98-107); CREATININE FOR GFR 0.87 MG/DL (0.70-1.30); GLOMERULAR FILTRATION RATE > 60.0 (>49); GLUCOSE, FASTING 97 MG/DL (74-106); POTASSIUM SERUM 4.2 MMOL/L (3.5-5.1); SODIUM LEVEL 144 MMOL/L (136-145); TOTAL PROTEIN 5.3 G/DL (5.7-8.2)
[2022-06-16] MEDS ORDERED: HYDR-3715 PO (08:35)
[2022-06-16] MEDS: SENOKOT S TAB PO SCH (09:01)
[2022-06-16] MEDS: PANTOPRAZOLE 40MG TAB (PROTONIX) PO SCH (09:01)
== END 2022-06-16 13:45 | disposition home or self-care (01) | DRG 221 ==
LOC: M OR 06:02 → M MS5PR 13:28
PROVIDERS: ADMIT Surgery; ATTEND Surgery
PROC: 0DBN4ZZ Excision of Sigmoid Colon, Percutaneous Endoscopic Approach (ICD-10-PCS; 2022-06-11)
PROC: 8E0W4CZ Robotic Assisted Procedure of Trunk Region, Percutaneous Endoscopic Approach (ICD-10-PCS; 2022-06-11)
PROC: 30233N1 Transfusion of Nonautologous Red Blood Cells into Peripheral Vein, Percutaneous Approach (ICD-10-PCS; principal; 2022-06-14)
DX: K57.32 Diverticulitis of large intestine without perforation or abscess without bleeding (principal); G62.9 Polyneuropathy, unspecified; I10 Essential (primary) hypertension; G43.909 Migraine, unspecified, not intractable, without status migrainosus; F32.A Depression, unspecified; F41.9 Anxiety disorder, unspecified; Z96.652 Presence of left artificial knee joint; Z91.030 Bee allergy status; Z79.899 Other long term (current) drug therapy

== ENCOUNTER → 2024-08-26 | Outpatient (CLI) | payer MEDICARE ==
[~2024-08-26] MED LIST changes: -ALIG4CAP PO; +ALIG4CAP3 PO; +HYDR-3715 PO; +PROBCAP14 PO
== END ==
LOC: M SLEEP 20:00
PROVIDERS: ATTEND Physician Assistant
DX: G47.33 Obstructive sleep apnea (adult) (pediatric) (principal)

== ENCOUNTER → 2024-10-30 | Outpatient (CLI) | payer MEDICARE | LOC: M SLEEP 20:00 | PROVIDERS: ATTEND Physician Assistant | DX: G47.33 Obstructive sleep apnea (adult) (pediatric) (principal) ==

== ENCOUNTER 2024-12-04 07:38 | Day surgery (SDC) | payer MEDICARE, BC ==
[~2024-12-04] VITALS: Ht 167.6 cm; Wt 88.9 kg
[~2024-12-04 07:38] MED LIST changes: +EPIP0.3I2 IM; +GABA-1172 PO; +MM S100C PO; +VALS1TAB67 PO
[2024-12-04 09:04] VITALS: TEMP 97.6
[2024-12-04 09:31] VITALS: BP 142/63; O2SAT 96
== END 2024-12-04 09:44 | disposition home or self-care (01) ==
LOC: M OPP 07:38
PROVIDERS: ATTEND Internal Medicine Gastroenterology
DX: D12.4 Benign neoplasm of descending colon (principal); K64.8 Other hemorrhoids; K57.30 Diverticulosis of large intestine without perforation or abscess without bleeding; Z98.0 Intestinal bypass and anastomosis status; K59.00 Constipation, unspecified; Z86.0100 Personal history of colon polyps, unspecified; G47.30 Sleep apnea, unspecified; Z86.73 Personal history of transient ischemic attack (TIA), and cerebral infarction without residual deficits; Z91.030 Bee allergy status; Z91.048 Other nonmedicinal substance allergy status; Z79.899 Other long term (current) drug therapy; F17.290 Nicotine dependence, other tobacco product, uncomplicated

== ENCOUNTER 2025-04-04 09:56 | Emergency (ER) | payer MEDICARE, BC ==
[~2025-04-04] VITALS: Ht 167.6 cm; Wt 91.4 kg
[~2025-04-04 09:56] MED LIST changes: -VERA240C3 PO; +VERA240C5 PO
[2025-04-04 09:58] VITALS: TEMP 98
[2025-04-04 12:03] LABS: BASO # 0.1 10^3/uL (0.0-0.2); BASO % 0.8 % (0.0-1.0); EOS # 0.1 10^3/uL (0.0-0.5); EOS % 0.7 % (0.0-3.0); LYMPH # 1.7 10^3/uL (1.5-5.0); LYMPH % 22.7 % (24.0-44.0); MONO # 0.6 10^3/uL (0.0-0.8); MONO % 7.6 % (2.0-8.0); NEUTROPHILS # 5.0 10^3/uL (1.5-8.5); NEUTROPHILS % 67.5 % (36.0-66.0); PLATELET COUNT, AUTOMATED 470 10^3/uL (150-450)
[2025-04-04 12:39] LABS: ALT/SGPT 40 U/L (7.0-40); AST/SGOT 28 U/L (<34); CALCIUM LEVEL 9.8 MG/DL (8.3-10.6); CARBON DIOXIDE LEVEL 26 MMOL/L (20-31); CHLORIDE LEVEL 107 MMOL/L (98-107); CREATININE FOR GFR 0.94 MG/DL (0.70-1.30); GLOMERULAR FILTRATION RATE 89.4 (>49); POTASSIUM SERUM 5.0 MMOL/L (3.5-5.1); SODIUM LEVEL 142 MMOL/L (136-145)
[2025-04-04 13:03] LABS: OSMOLALITY SERUM 321 MOSM/KG (280-301)
[2025-04-04] MEDS ORDERED: SULF-8 PO (13:19)
[2025-04-04] MEDS ORDERED: CEPH500C PO (13:19)
[2025-04-04] MEDS ORDERED: PANT40TA29 PO (13:19)
[2025-04-04] MEDS ORDERED: FERR324T2 PO (13:19)
[2025-04-04] MEDS ORDERED: HOME MED LIST COMPLETE! XX SCH (13:20)
[2025-04-04 17:01] VITALS: O2SAT 99
[2025-04-04 17:02] VITALS: BP 160/90
[2025-04-04] MEDS: MECLIZINE 25 MG TABLET PO ONE (18:41)
[2025-04-04] MEDS ORDERED: MECL-209 PO (18:45)
== END 2025-04-04 19:36 | disposition home or self-care (01) ==
LOC: M ED 09:56
DX: R42 Dizziness and giddiness (principal); I10 Essential (primary) hypertension; F41.9 Anxiety disorder, unspecified; F32.A Depression, unspecified; G43.909 Migraine, unspecified, not intractable, without status migrainosus; Z79.899 Other long term (current) drug therapy; Z91.89 Other specified personal risk factors, not elsewhere classified; Z91.030 Bee allergy status